=== PATIENT | female | born 1950 | race Caucasian/White ===

== ENCOUNTER → 2016-11-28 | Outpatient (CLI) | payer OTHER | LOC: CAT 10:08 | DX: Z13.6 Encounter for screening for cardiovascular disorders (principal) ==

== ENCOUNTER → 2017-07-16 | Outpatient (CLI) | payer OTHER ==
[~2017-07-16] MED LIST: ALLEGRA ALLERG180 MG PO; CELECOXIB100 MG PO; CYMBALTA60 MG PO; FEMARA2.5 MG PO; LOTREL 5-10 MG1 EACH PO; PRILOSEC 20 MG20 MG PO; PROVENTIL HFA6.7 G1 INH; SINGULAIR 10 MG10 M1 PO; VITAMIN D2000 UNIT PO
[2017-07-16 12:18] LABS: CALCIUM 9.6 mg/dL (8.5-10.1); CREATININE 1.1 mg/dL (0.6-1.0); POTASSIUM 3.9 mmol/L (3.5-5.1)
== END ==
LOC: CAT 11:26
PROVIDERS: Nurse Practitioner
DX: K57.30 Diverticulosis of large intestine without perforation or abscess without bleeding (principal)

== ENCOUNTER → 2017-12-30 | Outpatient (CLI) | payer OTHER | LOC: ULTRA 10:57 | DX: R22.42 Localized swelling, mass and lump, left lower limb (principal) ==

== ENCOUNTER → 2020-07-07 | Outpatient (CLI) | payer OTHER | LOC: CAT 08:32 | PROVIDERS: ATTEND Nurse Practitioner | DX: K57.33 Diverticulitis of large intestine without perforation or abscess with bleeding (principal); R19.7 Diarrhea, unspecified; K86.89 Other specified diseases of pancreas; N20.0 Calculus of kidney; M43.26 Fusion of spine, lumbar region; M16.0 Bilateral primary osteoarthritis of hip; Z87.19 Personal history of other diseases of the digestive system ==

== ENCOUNTER 2020-07-24 23:27 | Inpatient (IN) | payer OTHER ==
[~2020-07-24] VITALS: Ht 162.6 cm; Wt 90.7 kg
[2020-07-24 23:39] VITALS: BP 96/64
[2020-07-25] VITALS (7 sets, daily range): BP systolic 81–106; BP diastolic 49–55
[2020-07-25 00:14] LABS: ABSOLUTE NEUTROPHILS 11.6 thou/uL (1.4-8.2); BASOPHILS 0.3 % (0.0-2.0); EOSINOPHILS 0.5 % (0.0-3.0); HEMATOCRIT 41.1 % (37.0-47.0); HEMOGLOBIN 13.6 gm/dL (12.0-15.0); LYMPHOCYTES 7.5 % (24.0-44.0); MCH 29.8 pg (26.0-34.0); MCV 90.3 fL (80.0-100.0); MONOCYTES 7.6 % (1.0-8.0); PLATELET COUNT 235 thou/uL (150-400); POLYS 84.1 % (36.0-66.0); RBC 4.55 mil/uL (4.20-5.00); RDW 13.8 % (10.5-14.5); WBC 13.8 thou/uL (4.0-11.0)
[2020-07-25 00:17] LABS: ANION GAP 9 mmol/L (7-16); BUN 13 mg/dL (7-18); CALCIUM 9.2 mg/dL (8.5-10.1); CHLORIDE 99 mmol/L (98-107); CO2 25 mmol/L (21-32); CREATININE 1.2 mg/dL (0.6-1.0); GLUCOSE 128 mg/dL (74-106); POTASSIUM 3.3 mmol/L (3.5-5.1); SODIUM 133 mmol/L (136-145)
[2020-07-25] MEDS ORDERED: CRESTOR5 MG PO (00:21)
[2020-07-25 00:28] LABS: ALBUMIN 3.9 g/dL (3.4-5.0); LIPASE 121 U/L (73-393); SGOT 16 U/L (15-37); SGPT 26 U/L (14-59); TOTAL BILIRUBIN 0.7 mg/dL (0.2-1.0); TOTAL PROTEIN 7.7 g/dL (6.4-8.2); TROPONIN-I <0.06 ng/mL (<0.06)
--- NOTE | 2020-07-25 04:00 | NUR ---
PT ADMITTED INTO ROOM 444 AT AROUND 0400HRS. PT ALERT AND ORIENTED. UP TO THE BATHROOM WITH STEADY GAIT, BUT APPEARS WEAK.BP LOW AND ORDERS RECD TO GIVE A BOLUS.PT BEEN HAVING LOOSE STOOL WITH SOME GENERALISED STOMACH PAIN RATING IT AT A 2-3/10/ AFEBRILE AND DENIES SOA.CALL LIGHT WITHIN REACH.
--- NOTE | 2020-07-25 07:19 | EKG ---
[address] [place] [address] ELECTROCARDIOGRAM REPORT Name: NICK ROBERTSON Room #: 444-P ADM IN M.R.#: [id number] Admission: 07/25/20 Attend Phys: Jonah Cristobal MD Discharge: Date of : 46 Report #: [id number] [facility] ED Test Date: 2020-07-25 Test Time: 00:11:56 Pat Name: NICK ROBERTSON Department: Room: 444 Gender: F Human Resources Director: CECY : 1950 Requested By: Jak Curtis Order Number: [id number] MD: Christofer Newby Measurements Intervals [place] Rate: 78 P: 24 [place]: 184 QRS: -26 QRSD: 87 T: 1 QT: 396 QTc: 452 Interpretive Statements Sinus rhythm Borderline left axis deviation Low voltage, precordial leads Borderline T abnormalities, diffuse leads No previous ECG available for comparison Electronically Signed On 07-25-2020 7:19:09 CDT by Christofer Newby [email or web address] <ELECTRONICALLY SIGNED> By: Christofer Newby MD, [facility] 07/25/20 0719 D: 03/10 Christofer Newby MD, FACC /EPI
--- NOTE | 2020-07-25 10:39 | NUR ---
ASSESSMENT: CM REVIEWED CHART AND SPOKE WITH PATIENT. PT IS ALERT AND ORIENTED X4. PT IS ADMITTED WITH COLITIS AND IS ON IV ANBX AND GI HAS BEEN CONSULTED. PT LIVES IN A HOUSE WITH HER . PT REPORTS 2 STEPS WITH HANDRAIL TO ENTER AND NO STEPS SHE HAS TO USE ONCE INSIDE. PT REPORTS SHE HAS A BASEMENT BUT DOES NOT HAVE TO GO DOWN THERE. PT REPORTS IS INDEPENDENT WITH ADLS AND AMBULATION. PT STATES SHE HAS NOT HAD HOME HEALTH IN THE PAST OR BEEN TO A SNF. PTS PCP IS DR. TATUM. PT DOES NOT ANTICIPATE HAVING ANY NEEDS FROM CM. CM WILL CONTINUE TO FOLLOW TO ASSIST NEEDED.
--- NOTE | 2020-07-25 18:08 | NUR ---
Assumed pt care this am. Pt is alert & oriented x4. Pt is up ad rosalba. Pt has R FA 18 gauge and L Limb alert - Masectomy. Pt is room air. Pt c/o pain, nausea and diarrhea. Pt given antibiotics, pain medication, loperamide and ondansetron. Pt does not want narcotics. Pt will be NPO after midnight. Given polyethylene glycol as ordered. Consent for EGD & Colonoscopy in the chart not yet sign. Schedule for EGD & Colonoscopy tomorrow. Given report to 4W nurse. Pt is on the bed, bed on the lowest position, side rails up. Pt daughter at the bedside.
--- NOTE | 2020-07-26 05:02 | NUR ---
Assumed pt care at 1900. A/OX4,pleasant.VSS.Up with SBA/IV pole to bathroom. Pt completed bowel and having loose brown stools so far. Pt is weak and tired from not sleeping well for days,able to sleep a few hours tonight. NPO from midnight for EGD/Colonoscopy today. Fall precautions in place,reminded to call for help as needed and doing so. Will continue to monitor pt.
[2020-07-26 06:02] LABS: HEMATOCRIT 34.8 % (37.0-47.0); HEMOGLOBIN 11.7 gm/dL (12.0-15.0); MCH 30.6 pg (26.0-34.0); MCHC 33.5 g/dL (28.0-37.0); MCV 91.3 fL (80.0-100.0); RBC 3.81 mil/uL (4.20-5.00); RDW 13.6 % (10.5-14.5); WBC 8.2 thou/uL (4.0-11.0)
[2020-07-26 06:27] LABS: CALCIUM 8.6 mg/dL (8.5-10.1); CREATININE 0.9 mg/dL (0.6-1.0); POTASSIUM 3.5 mmol/L (3.5-5.1)
[2020-07-26 08:43] VITALS: BP 87/51
[2020-07-26 13:48] VITALS: BP 90/50
--- NOTE | 2020-07-26 13:51 | NUR ---
PT CONTINUES ON IV VANC AND ZOSYN. PT HAVING AN EGD/COLONOSCOPY THIS DAY. CM FOLLOWING REGARDING DC PLANNING.
--- NOTE | 2020-07-26 15:01 | P ---
[facility] [place] [address] PROCEDURE REPORT Name: NICK ROBERTSON Room #: 456-P [facility] IN M.R.#: [id number] Admission: 07/25/20 Attend Phys: Jonah Cristobal MD Discharge: Date of : 46 Report #: [id number] THIS REPORT FOR: cc: Jonah Cristobal MD, Neal A. MD McElhinney, Christian C. MD ~ DATE OF SERVICE: 07/26/2020 PROCEDURE PERFORMED: Upper endoscopy with biopsies. HISTORY OF PRESENT ILLNESS: The patient is a 69-year-old female with recent nausea, vomiting, abdominal pain, diarrhea. A CT scan of the abdomen on admission shows a colitis in the ascending colon and cecum. She was just diagnosed with C. diff overnight. She is on vancomycin at this time. Also noted was thickening of the lining of her stomach, possibly. Of note, the patient has a history of a pancreatic cyst, just approximately a week ago underwent EUS evaluation with aspirate. This was reportedly negative. Plan is for EGD and colonoscopy today. The patient is on daily PPI therapy. DESCRIPTION OF PROCEDURE: The risks and benefits of the procedure were explained to the patient, those risks including but not limited to bleeding, perforation and the risk of sedation. She understood these risks and gave informed consent. Sedation was given using propofol per anesthesia. Next, using a standard Olympus upper endoscope, the scope was placed in the patient's mouth and advanced under direct vision through the esophagus, stomach and into the second portion of the duodenum. The upper and mid esophagus was normal in appearance. In the distal esophagus just above the GE junction, a small pink mucosal tongue was noted. Biopsies were obtained to rule out the possibility of Madrid's esophagus. No evidence of esophagitis. Upon entering the stomach, a small hiatal hernia was noted. Overall, the gastric mucosa was normal other than small gastric polyps. Because of the thickening appearance on CT, random gastric biopsies were obtained. Also several gastric polyps were biopsied as well. The pylorus was normal and patent. The duodenal bulb, first and second portion were all normal. At this point, the scope was then withdrawn and the procedure terminated. The patient tolerated the procedure well. IMPRESSION: 1. Gastric polyps. 2. Possible Madrid's esophagus. 3. Small hiatal hernia. 4. Otherwise, normal upper endoscopy. RECOMMENDATIONS: 1. Await biopsy results. 2. Continue PPI therapy. [address] [address] PROCEDURE REPORT Name: AILYNNICK K Room #: 456-P [facility] IN M.R.#: [id number] Admission: 07/25/20 Attend Phys: Jonah Cristobal MD Discharge: Date of : 46 Report #: [id number] 3. We will proceed with colonoscopy next day. Thank you for allowing me to participate in her care. <ELECTRONICALLY SIGNED> By: Dennys Celeste MD 07/26/20 1501 1229 1448 Dennys Celeste MD /elba
--- NOTE | 2020-07-26 15:01 | P ---
[facility] [place] [address] PROCEDURE REPORT Name: NICK ROBERTSON Room #: 456-P [facility] IN M.R.#: [id number] Admission: 07/25/20 Attend Phys: Jonah Cristobal MD Discharge: Date of : 46 Report #: [id number] THIS REPORT FOR: cc: Jonah Cristobal MD, Neal A. MD McElhinney, Christian C. MD ~ DATE OF SERVICE: 07/26/2020 PROCEDURE PERFORMED: Colonoscopy with biopsies. HISTORY OF PRESENT ILLNESS: The patient is a 69-year-old female with recent nausea, vomiting, diarrhea, abdominal pain. CT scan of the abdomen and pelvis 07/24/2020 shows gastric mucosa appearing mildly prominent, gastric wall measured 16 mm, edema of the ascending colon from the cecum to the proximal transverse colon, likely representing colitis. Multiple diverticula noted in the sigmoid colon, no evidence of inflammation. Overnight, the patient's stool was C. diff positive. She is now on vancomycin. Upper endoscopy was just performed, which showed small gastric polyps, but otherwise negative. DESCRIPTION OF PROCEDURE: The risks and benefits of the procedure were explained to the patient, those risks including but not limited to bleeding, perforation and the risk of sedation. She understood these risks and gave informed consent. Sedation was given using propofol per anesthesia. Next, a digital rectal exam was initially performed, which showed small external hemorrhoids, otherwise normal. Next, using a standard Olympus colonoscope, the scope was placed into the patient's anus and advanced under direct vision to the cecum. The overall prep was good. The cecum and ileocecal valve were normal in appearance. No evidence of obvious colitis in the cecum. The terminal ileum was intubated and normal in appearance. Ascending colon was normal as well. No evidence of obvious colitis. Because of the CT findings, random biopsies were obtained. The transverse and descending colon were normal. Multiple diverticula were noted in the sigmoid colon, no evidence of inflammation, otherwise normal. In the rectum, there was a patchy erythema consistent with mild colitis. Biopsies were obtained. On retroflexion, small nonbleeding internal hemorrhoids were noted. The scope was then withdrawn and the procedure terminated. The patient tolerated the procedure well. IMPRESSION: 1. Mild colitis in the rectum. 2. Sigmoid diverticulosis. 3. Small internal and external hemorrhoids. 4. Otherwise, normal colonoscopy. RECOMMENDATIONS: 1. Await biopsy results. [address] [address] PROCEDURE REPORT Name: AILYNNICK Room #: 456-P [facility] IN M.R.#: [id number] Admission: 07/25/20 Attend Phys: Jonah Cristobal MD Discharge: Date of : 46 Report #: [id number] 2. Continue vancomycin and supportive care. Thank you for allowing me to participate in her care. <ELECTRONICALLY SIGNED> By: Dennys Celeste MD 07/26/20 1501 1256 1432 Dennys Celeste MD /nt
[2020-07-26 18:47] VITALS: BP 96/42
--- NOTE | 2020-07-26 20:23 | NUR ---
PT A&OX4, VSS, DENIES PAIN. PATIENT COMPLETED EGD AND COLONOSCOPY TODAY. PATIENT HAS FLUIDS RUNNING, IV RIGHT FOREARM. PATIENT TOLERATING DIET, DENIES N/V. PATIENT CONTINUES ON CDIFF PRECAUTIONS. NO SIGNS OF DISTRESS. WILL CONTINEU TO MONITOR.
[2020-07-26 20:28] VITALS: BP 98/48
--- NOTE | 2020-07-27 03:51 | NUR ---
Pt. rested quietly during the night when checked on during frequent rounds. She offers no complaints of pain or discomfort. Continues on contact isolation for c-diff. Pt. reports no loose stools this shift. Will continue to monitor.
[2020-07-27 06:20] LABS: URINE BILIRUBIN NEGATIVE (Negative); URINE BLOOD NEGATIVE (Negative); URINE CLARITY CLEAR; URINE COLOR YELLOW; URINE GLUCOSE-RANDOM* NEGATIVE (Negative); URINE KETONES NEGATIVE (Negative); URINE LEUKOCYTES-REFLEX NEGATIVE (Negative); URINE NITRITE-REFLEX NEGATIVE (Negative); URINE PROTEIN (DIPSTICK) NEGATIVE (Negative); URINE SPECIFIC GRAVITY 1.015 (1.005-1.035); URINE UROBILINOGEN 0.2 E.U./dl (0.2-1.0)
[2020-07-27 07:40] VITALS: BP 111/69
[2020-07-27] MEDS ORDERED: FIRVANQ50 MG/1 ML PO (11:54)
--- NOTE | 2020-07-27 12:32 | NUR ---
CARE TEAM INDICATED THAT PT IS MEDICALLY STABLE TO DC HOME THIS DAY. PT IS TO DC HOME TO SELF CARE. DR. TATUM INDICATED THAT HE CALLED MED[facility] INTO THE [facility] IN [place] PT'S REQUEST. SHE INDICATED THAT THE [facility] IN [place] HAD CALLED HER AND STATED THEY HAD RECEIVED PERSCRIPTION BUT THAT SHE SPOKE WITH ANDRE[facility] AND THEY WERE GOING TO CALL TO GET SCRIPT TRANSFERED TO THEM. SHE INDICATED NO OTHER QUESTIONS OR CONCERNS AT THIS TIME. PT TO DC HOME TO SELF CARE THIS DAY. CASE CLOSED.
--- NOTE | 2020-07-27 12:45 | NUR ---
PT A&OX4, VSS, DENIES PAIN. PATIENT HAS HAD ONE LOOSE STOOL TODAY. PATIENT DISCHARGING HOME. PATIENT TOLERATING DIET AND DENIES N/V. NO SIGNS OF DISTRESS. WILL CONTINUE TO MONITOR.
[2020-07-27 12:46] VITALS: BP 111/69
--- NOTE | 2020-07-31 14:06 | PATH ---
[facility] [place] [address] PATHOLOGY RPT PROCEDURE Name: INGRID ROBERTSON Room #: 456-P DIS IN M.R.#: [id number] Admission: 07/25/20 Date of : 46 Discharge: 07/27/20 Report #: [id number] Path Case #: [id number] [facility] Accession Number: [id number] . 01 Material submitted: . PART A: gastrointestinal site - BIOPSY GASTRITIS PART B: gastrointestinal site - BIOPSY GASTRIC POLYPS PART C: esophagus - BIOPSY DISTAL ESOPHAGUS. Modifiers: distal PART D: colon - BIOPSY ASCENDING COLON. Modifiers: ascending PART E: rectum - BIOPSY RECTAL COLITIS . 01 Clinical history: . A: R/O H PYLORI C:R/O RILEY'S D: R/O COLITIS ABD PAIN, DIARRHEA COLITIS, DIVERTICULOSIS, GASTRITIS, GASTRIC POLYP . 02 Diagnosis: A. Gastric mucosa, gastritis to rule out H. pylori, endoscopic biopsy: - Moderate reactive gastropathy. - Negative for intestinal metaplasia or atrophy. - Negative for Helicobacter pylori (properly controlled immunohistochemical stain performed). . B. Polyps, gastric polyps, endoscopic biopsy: - Fundic gland polyps, multiple. - Negative for dysplasia. . C. Gastric cardia-type mucosa, distal esophagus to rule out Riley's, endoscopic biopsy: - Mild chronic inflammation. - Negative for intestinal metaplasia or dysplasia. . D. Large intestine mucosa, ascending colon to rule out colitis, endoscopic biopsy: - Mild to moderate active colitis with crypt abscess formation, see comment. - Negative for dysplasia or malignancy. . E. Large intestine mucosa, rectal colitis, endoscopic biopsy: - Mild to moderate active colitis with crypt abscess formation, see comment. - Negative for dysplasia or malignancy. . (IUV:forcer maker; 07/31/2020) MBR 07/31/[address] [address] PATHOLOGY RPT PROCEDURE Name: INGRID ROBERTSON Room #: 456-P DIS IN M.R.#: [id number] Admission: 07/25/20 Date of : 46 Discharge: 07/27/20 Report #: [id number] Path Case #: [id number] . 02 Comment: D, E. The differential diagnosis includes active self-limited episode of colitis, early inflammatory bowel disease (ulcerative colitis or Crohn's disease), medication/drug-induced colitis, as well as acute diverticulitis. Please correlate clinically. (IUV:[facility]cer maker; 07/31/2020) . 02 Electronically signed: . Yana Wilson MD, Pathologist NPI- [id number] . 01 Gross description: . A. Received in formalin labeled "Zachariah, Ingrid, gastritis rule out H. pylori" are multiple fragments of mathis-brown soft tissue measuring in aggregate 1.2 x 0.4 x 0.3 cm. The specimen is submitted entirely in A1. . B. Received in formalin labeled "Zachariah, Ingrid biopsy gastric polyps" are multiple fragments of mathis-brown soft tissue measuring in aggregate 1.1 x 0.3 x 0.3 cm. The specimen is submitted entirely in B1. . C. Received in formalin labeled "Zachariah, Ingrid biopsy distal esophagus rule out Riley's " is a fragment of mathis-brown soft tissue measuring 0.5 x 0.3 x 0.3 cm. The specimen is submitted entirely in C1. . D. Received in formalin labeled "Zachariah, Ingrid biopsy ascending colon rule out colitis" are multiple fragments of mathis-brown soft tissue measuring in aggregate 1.9 x 0.4 x 0.2 cm. The specimen is submitted entirely in D1. . E. Received in formalin labeled "Zachariah, Ingrid biopsy rectal colitis" are multiple fragments of mathis-brown soft tissue measuring in aggregate 0.9 x 0.4 x 0.2 cm. The specimen is submitted entirely in E1. ([facility]; 07/28/2020) . GZA/GZA 07/31/2020 1226 Local . 02 Pathologist provided ICD-10: K31.9, K31.7, K29.50, K52.9 . 02 CPT . 603067, 681220, 233181, 846488, 728446, P02545 Specimen Comment: A courtesy copy of this report has been sent to [phone], [phone] Specimen Comment: 2008 Specimen Comment: Report sent to / DR FLETCHER Performed at: [address], [place], [place] [id number] [address] [address] PATHOLOGY RPT PROCEDURE Name: INGRID ROBERTSON Room #: 456-P DIS IN M.R.#: [id number] Admission: 07/25/20 Date of : 46 Discharge: 07/27/20 Report #: [id number] Path Case #: [id number] MD Michael Casper MD Phone: [phone] Performed at: [address] [id number] MD Yana Wilson MD Phone: [phone]
== END 2020-07-27 14:11 | disposition home or self-care (01) | DRG 371 ==
LOC: ER 23:27 → 4S 07-25 03:20 → EROBS 07-25 03:20 → 4W 07-25 03:20 → 4S 07-25 03:53 → 4W 07-25 18:19
PROVIDERS: Emergency Medicine; Nurse Practitioner; ADMIT Family Medicine; ATTEND Family Medicine
DX: A04.72 Enterocolitis due to Clostridium difficile, not specified as recurrent (principal); R65.11 Systemic inflammatory response syndrome (SIRS) of non-infectious origin with acute organ dysfunction; N17.9 Acute kidney failure, unspecified; K86.2 Cyst of pancreas; K57.30 Diverticulosis of large intestine without perforation or abscess without bleeding; Z20.822 Contact with and (suspected) exposure to COVID-19; K31.7 Polyp of stomach and duodenum; K64.8 Other hemorrhoids; K44.9 Diaphragmatic hernia without obstruction or gangrene; K64.4 Residual hemorrhoidal skin tags; K21.9 Gastro-esophageal reflux disease without esophagitis; F32.9 Major depressive disorder, single episode, unspecified; J45.909 Unspecified asthma, uncomplicated; E78.5 Hyperlipidemia, unspecified; I10 Essential (primary) hypertension; I95.9 Hypotension, unspecified; Z90.49 Acquired absence of other specified parts of digestive tract; Z90.12 Acquired absence of left breast and nipple; Z88.6 Allergy status to analgesic agent; Z88.1 Allergy status to other antibiotic agents; Z88.8 Allergy status to other drugs, medicaments and biological substances; Z79.899 Other long term (current) drug therapy
CPT/HCPCS: 10040; 62110; 62900

== ENCOUNTER → 2020-10-03 | Outpatient (CLI) | payer OTHER ==
[~2020-10-03] MED LIST changes: +CRESTOR5 MG PO; +FIRVANQ50 MG/1 ML PO
== END ==
LOC: NUC 09:08
PROVIDERS: ATTEND Family Medicine
DX: M85.852 Other specified disorders of bone density and structure, left thigh (principal); M85.851 Other specified disorders of bone density and structure, right thigh; M81.0 Age-related osteoporosis without current pathological fracture

== ENCOUNTER → 2020-10-03 | Outpatient (CLI) | payer OTHER | LOC: CAT | PROVIDERS: ATTEND Internal Medicine Cardiovascular Disease | DX: Z13.6 Encounter for screening for cardiovascular disorders (principal) ==